=== PATIENT | female | born 1970 ===

== ENCOUNTER 2018-10-26 07:22 | Outpatient (CLI) | payer OTHER ==
[~2018-10-26 07:22] MED LIST: BENADRYL25 MG PO; KETO10TA2 PO; ORPH100T PO; ZYRTEC10 M3 PO
== END 2018-10-26 18:03 | disposition home or self-care (01) ==
LOC: LAB 07:22
DX: E83.59 Other disorders of calcium metabolism (principal); N92.0 Excessive and frequent menstruation with regular cycle; N39.0 Urinary tract infection, site not specified; E78.00 Pure hypercholesterolemia, unspecified; D50.8 Other iron deficiency anemias

== ENCOUNTER 2018-11-20 15:43 | Outpatient (CLI) | payer OTHER | END 2018-11-20 15:52 | disposition home or self-care (01) | LOC: LAB 15:43 | DX: J11.1 Influenza due to unidentified influenza virus with other respiratory manifestations (principal); J06.9 Acute upper respiratory infection, unspecified ==

== ENCOUNTER → 2018-11-24 10:46 | Outpatient (CLI) | payer OTHER | END | disposition home or self-care (01) | LOC: LAB 10:46 | DX: J20.8 Acute bronchitis due to other specified organisms (principal); R07.89 Other chest pain ==

== ENCOUNTER → 2019-05-13 07:49 | Outpatient (CLI) | payer OTHER | END | disposition home or self-care (01) | LOC: LAB 05-11 13:22 | DX: Z00.00 Encounter for general adult medical examination without abnormal findings (principal); R42 Dizziness and giddiness; E55.9 Vitamin D deficiency, unspecified; M26.629 Arthralgia of temporomandibular joint, unspecified side; E22.1 Hyperprolactinemia; E78.49 Other hyperlipidemia ==

== ENCOUNTER 2019-08-04 16:02 | Emergency (ER) | payer OTHER ==
[~2019-08-04] VITALS: Ht 154.9 cm; Wt 71.2 kg
== END 2019-08-04 19:46 | disposition home or self-care (01) ==
LOC: ER 16:02
DX: S39.012A Strain of muscle, fascia and tendon of lower back, initial encounter (principal); S76.012A Strain of muscle, fascia and tendon of left hip, initial encounter; X50.0XXA Overexertion from strenuous movement or load, initial encounter; Y93.89 Activity, other specified; Y92.89 Other specified places as the place of occurrence of the external cause; Y99.8 Other external cause status

== ENCOUNTER → 2020-01-07 14:29 | Outpatient (CLI) | payer OTHER | END | disposition home or self-care (01) | LOC: LAB 14:29 | DX: J11.1 Influenza due to unidentified influenza virus with other respiratory manifestations (principal); R05 Cough ==

== ENCOUNTER → 2020-01-31 14:10 | Outpatient (CLI) | payer OTHER | END | disposition home or self-care (01) | LOC: LAB 14:10 | DX: J11.1 Influenza due to unidentified influenza virus with other respiratory manifestations (principal) ==

== ENCOUNTER → 2020-07-04 07:57 | Outpatient (CLI) | payer OTHER | END | disposition home or self-care (01) | LOC: LAB 07:57 | PROVIDERS: ATTEND Internal Medicine Cardiovascular Disease | DX: E11.9 Type 2 diabetes mellitus without complications (principal); I10 Essential (primary) hypertension; R51 Headache; E03.8 Other specified hypothyroidism; E78.2 Mixed hyperlipidemia; E55.9 Vitamin D deficiency, unspecified ==

== ENCOUNTER → 2021-05-31 | Outpatient (CLI) | payer OTHER | END | disposition home or self-care (01) | LOC: LAB 10:42 | PROVIDERS: ATTEND Emergency Medicine Pediatric Emergency Medicine | DX: Z03.818 Encounter for observation for suspected exposure to other biological agents ruled out (principal) ==

== ENCOUNTER → 2021-07-30 11:38 | Outpatient (CLI) | payer OTHER | END | disposition home or self-care (01) | LOC: LAB 11:38 | PROVIDERS: ATTEND Anesthesiology | DX: J06.9 Acute upper respiratory infection, unspecified (principal) ==

== ENCOUNTER → 2021-10-19 | Outpatient (CLI) | payer OTHER | END | disposition home or self-care (01) | LOC: PPH VACUNA 08:00 | PROVIDERS: ATTEND Emergency Medicine Pediatric Emergency Medicine | DX: Z23 Encounter for immunization (principal) ==

== ENCOUNTER 2021-10-25 09:29 | Outpatient (CLI) | payer OTHER | END 2021-10-25 15:00 | disposition home or self-care (01) | LOC: LAB 09:29 | PROVIDERS: ATTEND Anesthesiology | DX: Z20.822 Contact with and (suspected) exposure to COVID-19 (principal) ==

== ENCOUNTER → 2021-11-29 10:46 | Outpatient (CLI) | payer OTHER | END | disposition home or self-care (01) | LOC: LAB 10:46 | PROVIDERS: ATTEND Anesthesiology | DX: Z13.89 Encounter for screening for other disorder (principal) ==